=== PATIENT | male | born 1960 | race African-American/Black ===

== ENCOUNTER 2023-08-26 10:46 | Emergency (ER) | payer OTHER ==
[~2023-08-26] VITALS: Ht 177.8 cm; Wt 55.0 kg
[2023-08-26 10:54] VITALS: O2SAT 97
[2023-08-26] MEDS ORDERED: metformin (10:54)
[2023-08-26] MEDS ORDERED: gabapentin (10:54)
[2023-08-26] MEDS ORDERED: glipizide (10:54)
[2023-08-26] MEDS ORDERED: keppra (10:54)
[2023-08-26] MEDS ORDERED: lisinopril (10:54)
[2023-08-26] MEDS ORDERED: simvastatin (10:54)
[2023-08-26] MEDS ORDERED: LEVETIRACETAM 500MG PREMIX 100 ML IV ONE (11:30)
[2023-08-26 12:19] LABS: BASOPHILS % 0.4 % (0.0-2.0); DIFFERENTIAL COMMENT 0; EOSINOPHILS % 0.6 % (0.0-5.0); HEMOGLOBIN. 10.5 g/dL (14.0-18.0); MEAN CORPUSCULAR HEMOGLOBIN 33.3 pg (28.0-32.0); MEAN CORPUSCULAR HGB CONC 32.7 g/dL (31.0-37.0); MEAN CORPUSCULAR VOLUME 101.7 fL (80.0-94.0); MEAN PLATELET VOLUME 9.8 fl (7.4-10.4); MONOCYTES % 10.6 % (2.0-8.0); NEUTROPHILS % 62.4 % (40.0-76.0); PLATELET 129 x1000/uL (130-400); RED BLOOD CELL COUNT 3.14 mill/uL (4.7-6.1); RED CELL DISTRIBUTION WIDTH 15.8 % (11.6-14.6); WHITE BLOOD COUNT 4.2 x1000/uL (4.5-11.0)
[2023-08-26 12:43] LABS: ALANINE AMINOTRANSFERASE 35 IU/L (10-49); ALBUMIN 2.5 g/dL (3.2-4.8); ASPARTATE AMINOTRANSFERASE 170 IU/L (<34); BILIRUBIN TOTAL 5.8 mg/dL (0.1-1.0); CALCIUM 7.8 mg/dL (8.7-10.4); CARBON DIOXIDE 25 mEq/L (21-32); CHLORIDE 101 mEq/L (98-107); CREATININE 0.4 mg/dL (0.6-1.3); GLUCOSE 192 mg/dL (70-105); PROTEIN TOTAL 5.8 g/dL (6.0-8.3); SODIUM 134 mEq/L (136-145)
[2023-08-26 13:18] LABS: UREA NITROGEN BLOOD < 5 mg/dL (9-23)
[2023-08-26] MEDS ORDERED: SODIUM CHLORIDE 0.9% 1,000 ML IV ONE (16:45)
[2023-08-27] VITALS: BP 158/70; PULSE 83; RESP 17; TEMP 98.2
== END 2023-08-27 00:13 | disposition short-term general hospital (02) ==
LOC: ER 10:46
DX: G40.909 Epilepsy, unspecified, not intractable, without status epilepticus (principal); G93.40 Encephalopathy, unspecified; E11.9 Type 2 diabetes mellitus without complications; E78.00 Pure hypercholesterolemia, unspecified; I10 Essential (primary) hypertension
CPT/HCPCS: 36415; 80053; 85025; 96365; 99285; J1953; J7030

== ENCOUNTER 2023-10-08 04:02 | Emergency (ER) | payer OTHER ==
[~2023-10-08] VITALS: Ht 172.7 cm; Wt 64.0 kg
[~2023-10-08 04:02] MED LIST: gabapentin; glipizide; keppra; lisinopril; metformin; simvastatin
[2023-10-08] MEDS ORDERED: ASPIRIN 81MG TABLET PO ONE (04:15)
[2023-10-08 06:17] LABS: BASOPHILS % 0.4 % (0.0-2.0); DIFFERENTIAL COMMENT 0; HEMATOCRIT. 21.4 % (42.0-52.0); LYMPHOCYTES % 9.8 % (20.0-50.0); MEAN CORPUSCULAR HEMOGLOBIN 33.4 pg (28.0-32.0); MEAN CORPUSCULAR HGB CONC 32.7 g/dL (31.0-37.0); MEAN CORPUSCULAR VOLUME 102.2 fL (80.0-94.0); MEAN PLATELET VOLUME 10.2 fl (7.4-10.4); MONOCYTES % 8.5 % (2.0-8.0); NEUTROPHILS % 81.3 % (40.0-76.0); PLATELET 148 x1000/uL (130-400); RED CELL DISTRIBUTION WIDTH 15.3 % (11.6-14.6); WHITE BLOOD COUNT 6.9 x1000/uL (4.5-11.0)
[2023-10-08 06:19] LABS: INR 1.8; PROTHROMBIN TIME 18.8 sec (9.6-11.0)
[2023-10-08 07:00] VITALS: TEMP 98.2
[2023-10-08 07:52] LABS: ALANINE AMINOTRANSFERASE 17 IU/L (10-49); ALBUMIN 1.9 g/dL (3.2-4.8); ASPARTATE AMINOTRANSFERASE 32 IU/L (<34); BILIRUBIN TOTAL 3.3 mg/dL (0.1-1.0); CALCIUM 7.7 mg/dL (8.7-10.4); CARBON DIOXIDE 17 mEq/L (21-32); CHLORIDE 101 mEq/L (98-107); CREATININE 0.6 mg/dL (0.6-1.3); GLUCOSE 185 mg/dL (70-105); POTASSIUM 4.8 mEq/L (3.5-5.1); PROTEIN TOTAL 4.5 g/dL (6.0-8.3); SODIUM 132 mEq/L (136-145); TROPONIN I HIGH SENSITIVITY 15 ng/L (3.0-53); UREA NITROGEN BLOOD 17 mg/dL (9-23)
[2023-10-08 07:56] LABS: ETHANOL BLOOD < 10 mg/dL (<10)
[2023-10-08] MEDS ORDERED: SODIUM CHLORIDE 0.9% 500 ML IV ONE (09:00)
[2023-10-08] MEDS ORDERED: NOREPINEPHRINE 8 MG in DEXT 5% WATER 242 ML IV STA (10:49)
[2023-10-08] MEDS ORDERED: PIPERACILLIN/TAZO 3.375G/50ML 50 ML IV STA (10:50)
[2023-10-08] MEDS ORDERED: VANCOMYCIN 1G PREMIX 200 ML IV STA (10:50)
[2023-10-08] MEDS: NOREPINEPHRINE 8MG/250ML PMX 250 ML IV PRN ×2 (11:11→17:05)
[2023-10-08] MEDS: PANTOPRAZOLE SODIUM 40 MG/VIAL IV SCH ×2 (12:45→22:44)
[2023-10-08 13:00] LABS: TROPONIN I HIGH SENSITIVITY 18 ng/L (3.0-53)
[2023-10-08] MEDS ORDERED: PHYTONADIONE 1MG/0.5ML INJ SUBCUT SCH (13:00)
[2023-10-08 13:39] LABS: IRON 92 ug/dL (65-175); TOTAL IRON BINDING CAPACITY 121 ug/dl (250-425)
[2023-10-08 13:59] LABS: FERRITIN 1036 ng/mL (22-322); FOLIC ACID (FOLATE) SERUM 11.32 ng/mL (>5.38)
[2023-10-08] MEDS ORDERED: OCTREOTIDE 1,000 MCG in SODIUM CHLORIDE 0.9% 100 ML IV SCH (14:00)
[2023-10-08 14:05] LABS: VITAMIN B12 SERUM > 2000 pg/mL (211-911)
[2023-10-08] MEDS: OCTREOTIDE 1,000 MCG in SODIUM CHLORIDE 0.9% 100 ML IV SCH ×2 (14:30→15:35)
[2023-10-08] MEDS ORDERED: DEXT 5%/0.45% NACL 1000ML 1,000 ML IV SCH (14:45)
[2023-10-08] MEDS ORDERED: IPRATROPIUM/ALBUTEROL 0.5-3(2.5)MG/3ML NEB NEB PRN (14:45)
[2023-10-08] MEDS ORDERED: ACETAMINOPHEN 325MG TABLET PO PRN (14:45)
[2023-10-08] MEDS ORDERED: ONDANSETRON HCL 4MG/2ML INJ IV PRN (14:45)
[2023-10-08] MEDS: LEVETIRACETAM 500MG PREMIX 100 ML IV SCH (15:35)
[2023-10-08] MEDS: ALBUMIN HUMAN 25GM/100ML (25%) IV SCH ×2 (15:55→21:00)
[2023-10-08] MEDS ORDERED: FOLIC ACID 1 MG, THIAMINE HCL 100 MG, MVI, ADULT NO.1 10 ML in DEXTROSE 5% WATER 1,000 ML IV SCH ×4 (16:00)
[2023-10-08 16:18] LABS: LACTIC ACID 15.5 mmol/L (0.4-2.0)
[2023-10-08] MEDS ORDERED: IPRATROPIUM/ALBUTEROL 0.5-3(2.5)MG/3ML NEB HHN SCH (18:00)
[2023-10-08 18:15] VITALS: PULSE 104; RESP 28; O2SAT 90
[2023-10-08 19:57] LABS: HEMATOCRIT 28.3 % (42.0-52.0); HEMOGLOBIN 8.5 g/dL (14.0-18.0)
[2023-10-08] MEDS ORDERED: VANCOMYCIN 1G PREMIX 200 ML IV SCH (21:00)
[2023-10-08] MEDS ORDERED: PIPERACILLIN/TAZO 3.375G/50ML 50 ML IV SCH (22:00)
[2023-10-08 23:53] LABS: CREATINE KINASE MB FRACTION 29.7 ng/mL (0.5-3.6)
[2023-10-09] VITALS: BP 134/84; PULSE 102; RESP 24
[2023-10-09] MEDS: LEVETIRACETAM 500MG PREMIX 100 ML IV SCH (00:10)
[2023-10-09 00:39] LABS: AMMONIA 347 uMol/L (<32)
[2023-10-09] MEDS ORDERED: LORAZEPAM 2MG/ML INJ ONE (01:00)
== END 2023-10-09 01:06 ==
LOC: ER 04:02 → EDBEDREQ 12:14 → EDBEDREQTM 12:14 → ER 10-09 01:06 → CANBEDREQ 10-10 04:14
DX: D64.9 Anemia, unspecified (principal); I95.9 Hypotension, unspecified; R18.8 Other ascites; E78.00 Pure hypercholesterolemia, unspecified; E11.9 Type 2 diabetes mellitus without complications; Z86.59 Personal history of other mental and behavioral disorders
CPT/HCPCS: 31500; 36415; 36430; 71045; 74176; 80053; 80320; 82140; 82550; 82553; 82607; 82728; 82746; 82962; 83540; 83550; 83605; 83880; 84145; 84484; 85014; 85018; 85025; 85044; 86850; 86900; 86920; 86927; 93005; 94640; 96361; 96365; 96367; 96368; 96372; 96375; 99291; C9113; J1953; J2060; J2354; J2543; J3370; J3411; J3430; J3490; J7040; J7050; J7060; J7070; P9016; P9017; P9047; G0480